=== PATIENT | female | born 1945 | race Caucasian/White ===

== ENCOUNTER → 2017-01-19 | Outpatient (CLI) | payer OTHER ==
[~2017-01-19] MED LIST: ALPRAZOLAM0.5 MG; AMBIEN PO; AMITRYPTYLINE PO; ARICEPT PO; CENTRUM SILVER; DITROPAN5 MG; LEVOTHROID100 MC1; MAXILIFE RICE 51 CAP; OMEPRAZOLE20 M1; OS-CAL 500 + D500 MG; REMERON30 MG; VITAL-D RX TABL1 TAB; ZYRTEC10 M2; [UNRECOGNIZED DRUG - OTHER]
--- NOTE | ~2017-01-19 | MY29 ---
[facility] A Service of [facility] & [facility] RADIOLOGY TEXT RESULTS PATIENT: SATHYA BAEZA LOCATION: [facility] : 49 UNIT #: [id number] AGE: [address]: Ananya Peña APRN SEX: F ORDER DR: [id number] [facility] [address] [place], [place] [address] [id number] O MR#: [id number] Acc #: [id number] NAME: SATHYA BAEZA : 1945 SEX: F STUDY DATE/TIME: 01/19/2017 12:50 UNIT: [facility] ROOM: STUDY DESCRIPTION: MY GREGG SCREENING W/ CAD BILAT Attending Physician: Ananya Peña A.P.R.N. Referring Physician: Ananya Peña A.P.R.N. Ordering Physician: Ananya Peña A.P.R.N. Primary Care Physician: Ananya Peña A.P.R.N. MEDICAL IMAGING REPORT This report is preliminary unless electronic signature is present EXAM Bilateral digital screening mammogram with CAD 01/19/2017 INDICATIONS 71-year-old female for routine screening. No reported problems and no personal or family history of breast cancer. No surgeries. CC and MLO views of the breasts were obtained and reviewed with an approved CAD device. COMPARISON 11/15/2014, 11/16/2013, 05/14/2012 FINDINGS Breast parenchyma is composed of scattered fibroglandular densities. The pattern is unchanged. There is no new dominant nodule, mass or suspicious cluster of microcalcifications. Benign calcifications are present. IMPRESSION Benign screening mammogram. 1 year followup recommended Patients over the age of 40 are entered into a reminder system with target due date for the next mammogram. A result letter will also be sent to the patient. BIRADS: 2 - Benign finding Dictated by... Barney Andujar M.D. THIS IS AN ELECTRONICALLY VERIFIED REPORT Barney Andujar M.D. at 01/27/2017 7:12 AM VALERIA/keyanna STS. [facility] A Service of [facility] & [facility] RADIOLOGY TEXT RESULTS PATIENT: SATHYA BAEZA LOCATION: [facility] #: [id number] : [birth year] UNIT #: [id number] AGE: [address]: Ananya Peña APRN SEX: F ORDER DR: TD: 01/26/2017 17:12 JOB #: [id number] MEDICAL IMAGING REPORT Page 1 of 1 COPY
== END | disposition home or self-care (01) ==
LOC: CWCC 12:12
DX: Z12.31 Encounter for screening mammogram for malignant neoplasm of breast (principal)
CPT/HCPCS: G0202

== ENCOUNTER 2017-02-03 08:45 | Emergency (ER) | payer OTHER ==
[~2017-02-03] VITALS: Ht 172.7 cm; Wt 77.1 kg
--- NOTE | ~2017-02-03 | CR213 ---
[facility] A Service of [facility] & [facility] RADIOLOGY TEXT RESULTS PATIENT: SATHYA BAEZA LOCATION: [facility] : 49 UNIT #: [id number] AGE: [address]: Baldemar Babin MD SEX: F ORDER DR: [id number] [facility] [address] [place], [place] [address] [id number] E MR#: [id number] Acc #: [id number] NAME: SATHYA BAEZA. : 1945 SEX: F STUDY DATE/TIME: 02/03/2017 09:00 UNIT: [facility] ROOM: STUDY DESCRIPTION: CR Ribs Unilateral 2 View Rt Attending Physician: Baldemar Babin M.D. Ordering Physician: Ed Doctor [id number] [facility] Primary Care Physician: Ananya Peña A.P.R.N. MEDICAL IMAGING REPORT This report is preliminary unless electronic signature is present EXAM Right rib series 02/03/2017 09:00 hours HISTORY Patient fell yesterday with right shoulder and right lateral rib pain since fall. COMPARISON Chest film 07/05/2011 FINDINGS AP and oblique views of the right ribs demonstrate no rib fracture, rib lesion or pleural effusion. The underlying lung is clear. IMPRESSION Negative right rib series. Dictated by... Catalina Sanders M.D. THIS IS AN ELECTRONICALLY VERIFIED REPORT Catalina Sanders M.D. at 02/03/2017 1:44 PM Fred TD: 02/03/2017 12:13 JOB #: [id number] MEDICAL IMAGING REPORT Page 1 of 1 COPY
--- NOTE | ~2017-02-03 | CR230 ---
[facility]. [facility] A Service of [facility] & [facility] RADIOLOGY TEXT RESULTS PATIENT: SATHYA BAEZA LOCATION: [facility] : 49 UNIT #: [id number] AGE: [address]: Baldemar Babin MD SEX: F ORDER DR: [id number] [facility] [address] [place], [place] [address] [id number] E MR#: [id number] Acc #: [id number] NAME: SATHYA BAEZA. : 1945 SEX: F STUDY DATE/TIME: 02/03/2017 09:02 UNIT: [facility] ROOM: STUDY DESCRIPTION: CR Shoulder Min 2 View Rt Attending Physician: Baldemar Babin M.D. Ordering Physician: Ed Doctor [id number] [facility] Primary Care Physician: Madeleine PalmaPHammadRSinan MEDICAL IMAGING REPORT This report is preliminary unless electronic signature is present EXAM Right shoulder, 02/03/2017 09:02 hours HISTORY Patient fell yesterday with right shoulder and right lateral rib pain since fall. COMPARISON None FINDINGS AP views in internal-external rotation and a scapula Y-view were performed. There is no fracture, dislocation or significant degenerative change. IMPRESSION Negative right shoulder. Dictated by... Catalina Sanders M.D. THIS IS AN ELECTRONICALLY VERIFIED REPORT Catalina Sanders M.D. at 02/03/2017 1:44 PM Nasir TD: 02/03/2017 12:09 JOB #: [id number] MEDICAL IMAGING REPORT Page 1 of 1 COPY
== END 2017-02-03 11:22 | disposition home or self-care (01) ==
LOC: CED 08:45
DX: S46.911A Strain of unspecified muscle, fascia and tendon at shoulder and upper arm level, right arm, initial encounter (principal); S20.211A Contusion of right front wall of thorax, initial encounter; W18.09XA Striking against other object with subsequent fall, initial encounter; Y92.009 Unspecified place in unspecified non-institutional (private) residence as the place of occurrence of the external cause
CPT/HCPCS: 71100; 73030; 96372; 99283; J1885

== ENCOUNTER → 2017-02-17 | Outpatient (CLI) | payer OTHER ==
[2017-02-17 06:42] LABS: HEMATOCRIT 42.7 % (35.0-45.0); HEMOGLOBIN 14.2 gm/dL (12.0-16.0); MEAN CELL VOLUME 89.9 FL (83-96); MEAN CORPUSCULAR HEMOGLOBIN 29.8 PG (28-34); MEAN CORPUSCULAR HGB CONC 33.1 g/dL (30-36); MEAN PLATELET VOLUME 9.7 FL (6.5-11.5); RED BLOOD COUNT 4.76 X10e (3.90-5.30); RED CELL DISTRIBUTION WIDTH 14.9 % (11.0-15.5); WHITE BLOOD COUNT 7.9 X10e3 (4.0-10.5)
[2017-02-17 08:15] LABS: BUN/CREATININE RATIO 22.5; CALCIUM SERUM 9.2 mg/dL (8.4-10.2); CREATININE SERUM 1.2 mg/dL (0.6-1.4); GLOM FILT RATE Estimated 46.1 mL/min (>60); POTASSIUM 4.1 mmol/L (3.5-5.1)
== END | disposition home or self-care (01) ==
LOC: CLAB 06:05
PROVIDERS: Specialist
DX: H72.90 Unspecified perforation of tympanic membrane, unspecified ear (principal)
CPT/HCPCS: 36415; 80048; 85027